=== PATIENT | male | born 1945 | race Caucasian/White ===

== ENCOUNTER 2019-08-12 19:40 | Emergency (ER) | payer OTHER ==
[~2019-08-12] VITALS: Ht 170.2 cm; Wt 77.1 kg
[~2019-08-12 19:40] MED LIST: DEC150 PO; FLO4 PO; LAC PO; LANTUS SOLOS100 U/M1 SC; LIPI20 PO; LIPITOR80 MG PO; LISINOPRIL1 PO1 PO; LISINOPRIL10 MG PO; METFORMIN HCL500 MG; METFORMIN850 M1 PO; METOPROLOL TART25 M1; NAMENDA10 M2 PO; PROAIR HFA0.09 MG/A1; QVAR0.08 MG/Ac IH; SOD1 PO; TEGRETOL200 MG PO; ZESTRIL20 MG PO
[2019-08-12 20:51] LABS: BASOPHIL % 0.3 % (0-2); PLATELET COUNT 353 x10^3mcL (130-400); RED CELL DISTRIBUTION WIDTH 13.6 % (11.5-14.5)
[2019-08-12 21:05] LABS: CALCIUM 9.3 mg/dL (8.5-10.1); CARBON DIOXIDE 31.3 mmol/L (21-32); CHLORIDE SERUM 94 mmol/L (98-107); CREATININE SERUM 1.4 mg/dL (0.7-1.3); GLUCOSE SERUM 114 mg/dL (74-106); POTASSIUM SERUM 5.1 mmol/L (3.5-5.1); SODIUM SERUM 133 mmol/L (136-145)
[2019-08-12 21:09] LABS: ALKALINE PHOSPHATASE 74 U/L (46-116); ALT/SGPT 18 U/L (16-63); AST/SGOT 21 U/L (15-37); BILIRUBIN TOTAL 0.34 mg/dL (0.20-1.00); LIPASE 272 IU/L (73-393); TOTAL PROTEIN, SERUM 7.9 g/dL (6.4-8.2)
[2019-08-13 03:04] VITALS: BP 142/69
== END 2019-08-13 03:04 | disposition home or self-care (01) ==
LOC: ED 19:40
DX: R10.816 Epigastric abdominal tenderness (principal); I10 Essential (primary) hypertension; E11.9 Type 2 diabetes mellitus without complications; E78.00 Pure hypercholesterolemia, unspecified
CPT/HCPCS: 36415; J7030; Q9966

== ENCOUNTER 2019-11-05 19:35 | Observation (INO) | payer OTHER ==
[~2019-11-05] VITALS: Ht 162.6 cm; Wt 77.1 kg
[~2019-11-05 19:35] MED LIST changes: +METFORMIN HCL500 M4 PO; -METFORMIN HCL500 MG
[2019-11-05 20:09] VITALS: Ht 162.6 cm; Wt 77.1 kg
--- NOTE | 2019-11-05 20:21 | NUR ---
PT PRESENTS TO ED WITH C/O R RIB PAIN S/P FALL IN THE SHOWER. PT REPORTS THAT HE WAS FEELING DIZZY AND NAUSEOUS IN THE SHOWER AND THEN HE FELL DOWN AND HIT HIS RIBS ON THE SIDE OF THE TUB. PT STATES THAT HE IS UNSURE IF HE LOST CONCIOUSNESS BUT THINKS HE MIGHT HAVE. PT DENIES PAIN IN HEAD OR CHEST, PT DENIES NAUSEA AT THIS TIME. PT NOTED WITH SHALLOW RESPIRATIONS DUE TO PAIN BUT PT O2 SAT 98% ON RA. PT IS AOX4, NO ACUTE DISTRESS NOTED. PT PLACED ON FULL CM.
--- NOTE | 2019-11-05 20:30 | NUR ---
PT OFF FLOOR FOR XRAY
[2019-11-05 20:50] LABS: BASOPHIL % 0.4 % (0-2); PLATELET COUNT 300 x10^3mcL (130-400); RED CELL DISTRIBUTION WIDTH 13.6 % (11.5-14.5)
[2019-11-05 21:05] LABS: ALBUMIN 3.6 g/dL (3.4-5.0); ALKALINE PHOSPHATASE 87 U/L (46-116); ALT/SGPT 48 U/L (16-63); AST/SGOT 47 U/L (15-37); BILIRUBIN TOTAL 0.54 mg/dL (0.20-1.00); CALCIUM 8.7 mg/dL (8.5-10.1); CARBON DIOXIDE 29.5 mmol/L (21-32); CHLORIDE SERUM 86 mmol/L (98-107); CREATININE SERUM 1.1 mg/dL (0.7-1.3); GLUCOSE SERUM 164 mg/dL (74-106); TOTAL PROTEIN, SERUM 7.3 g/dL (6.4-8.2)
[2019-11-05 21:07] LABS: SODIUM SERUM 124 mmol/L (136-145)
--- NOTE | 2019-11-05 22:10 | NUR ---
ULTRASOUND IN PROGRESS AT BEDSIDE.
--- NOTE | 2019-11-05 22:40 | NUR ---
PT REPORT CALLED TO BECKY STEVENS TO ASSUME PT CARE.
--- NOTE | 2019-11-05 22:50 | NUR ---
PT TRANSFERRED TO 242B BY [facility] BY DANIAL MAIER AND ROSANNA RN. PT ON FULL CM FOR TRANSPORT. PT IS AOX4, RESP EVEN AND UNLABORED, NO ACUTE DISTRESS NOTED. PT AMBULATED FROM [facility] TO BED WITHOUT INCIDENT. PT ACCEPTED BY BECKY STEVENS TO ASSUME PT CARE.
--- NOTE | 2019-11-06 00:30 | NUR ---
RECEIVED FOROM ER DEPT VIA [facility] WITH THE CHEIF COMPLAINTS OF SEVERE RIGHT RIB PAIN S/P FALL AT HOME. PT ALERT AND ORIENTED BUT APPARENTLY DROWSY AT THIS TIME. WAS GIVEN MORPHINE IV AT ER. PLACED COMGORTABLY IN BED. VITAL SIGNS TAKEN AND RECORDED. PATIENT C/O RIGHT RIB PAIN AT THIS TIME 06/01, NOROC 1TAB GIVEN PRN MEDICATION. STARTED ON IVF VIA PERIPHERAL LINE AT 50ML/HR. AL DUE MEDICATIONS GIVEN ORDERED. PLACED CALL LIGHT WITHIN REACH, INSTRUCTED TO CALL FOR ANY ASSISTANCE NEEDED AND VERBALIZED UNDERSTANDING.
[2019-11-06 01:50] VITALS: BP 156/65
--- NOTE | 2019-11-06 03:27 | NUR ---
ABLE TO SLEEP AT LONG INTERVALS. NO S/S OF APIN/DISCOMFORT. NO ADVERSE REACTION FRO ATB THERAPY.
[2019-11-06 05:50] VITALS: BP 129/55
--- NOTE | 2019-11-06 05:51 | NUR ---
CONTINUES ON IVF NS AT 50ML/HR VIA PERIPHERAL LINE AT [facility] TOLERATING WELL. DENIES ANY PAIN/DISCOMFORT AT THIS TIME.
[2019-11-06 06:38] LABS: BASOPHIL % 0.4 % (0-2); PLATELET COUNT 283 x10^3mcL (130-400); RED CELL DISTRIBUTION WIDTH 13.8 % (11.5-14.5)
[2019-11-06 07:08] LABS: ALKALINE PHOSPHATASE 68 U/L (46-116); ALT/SGPT 45 U/L (16-63); AST/SGOT 38 U/L (15-37); BILIRUBIN TOTAL 0.5 mg/dL (0.20-1.00); CALCIUM 8.2 mg/dL (8.5-10.1); CARBON DIOXIDE 28.7 mmol/L (21-32); CHLORIDE SERUM 92 mmol/L (98-107); CREATININE SERUM 0.9 mg/dL (0.7-1.3); GLUCOSE SERUM 103 mg/dL (74-106); POTASSIUM SERUM 4.3 mmol/L (3.5-5.1); SODIUM SERUM 127 mmol/L (136-145); TOTAL PROTEIN, SERUM 6.2 g/dL (6.4-8.2)
--- NOTE | 2019-11-06 07:30 | NUR ---
RECEIVED PATIENT IN BED, APPEARS TO BE SLEEPING. AROUSED EASILY TO NAME. ALERT AND ORIENTED ABLE TO VERBALIZE NEEDS WELL. IVF INFUSING WELL TO LEFT A/C. TELE 9 NSR. PER PATIENT HIS RT SIDE RIB AREA PAIN IN MINIMAL AND TOLERABLE AT THIS TIME. AMBULATES WITH SLOW STEADY GAIT, INSTRUCTED TO CALL FOR ASSIST HE IS S/P FALL AT HOME. VOIDING WELL, USING URINAL. NO ACUTE DISTRESS NOTED.
[2019-11-06 08:53] VITALS: BP 132/55
[2019-11-06 12:00] VITALS: BP 124/53
[2019-11-06 13:28] LABS: CALCIUM 8.7 mg/dL (8.5-10.1); CARBON DIOXIDE 28.7 mmol/L (21-32); CHLORIDE SERUM 93 mmol/L (98-107); CREATININE SERUM 0.9 mg/dL (0.7-1.3); GLUCOSE SERUM 127 mg/dL (74-106); POTASSIUM SERUM 4.5 mmol/L (3.5-5.1); SODIUM SERUM 127 mmol/L (136-145)
--- NOTE | 2019-11-06 14:33 | NUR ---
PATIENT'S PLAN OF CARE WAS DISCUSSED AND REVIEWED WITH INVESTMENT DIRECTOR:JESSIE RICKETTS. I HAVE REVIEWED THE DATA COLLECTION BY INVESTMENT DIRECTOR (NAME):JESSIE RICKETTS. ENTERED ON (DATE/TIME):11/06/2019. I CONCUR WITH THE DATA AND ANY EXCEPTIONS OR COMMENTS ARE LISTED BELOW:
--- NOTE | 2019-11-06 14:54 | NUR ---
PHYSICAL THERAPY DAILY NOTES CO-SIGN All documentation done by the [employer]er for 11/06/19 has been reviewed. I agree with the documentation. Reviewed/Co-Signed by: Reny Escalante PT Documentation Done by:ELISA QUAN SPT
[2019-11-06 16:12] VITALS: BP 144/63
--- NOTE | 2019-11-06 16:31 | NUR ---
PATIENT WAS OOB AND AMBULATED WITH PHYSICAL THERAPY. TOLERATED WELL. STEADY GAIT WAS OBSERVED. IVF INFUSING WELL, IV SITE PATENT. DENIES ANY PAIN OR DISCOMFORT. SPOUSE WAS INTO VISIT. NO CHANGE IN CONDITION NOTED.
--- NOTE | 2019-11-06 17:51 | NUR ---
PATIENT IS SITTING UP IN BED EATING DINNER TRAY. FAMILY MEMBERS AT BEDSIDE. NO CHANGE IN CONDITION NOTED. NO C/O PAIN OR DISCOMFORT AT THIS TIME.
--- NOTE | 2019-11-06 19:25 | NUR ---
CARE ASSUMED FROM OUTGOING [employer] PLANT SUPERINTENDENT. PT RESTING COMFORTABLY IN BED. NO ACUTE DISTRESS NOTED. EVEN AND UNLABORED RESPIRATIONS ON RA. ON TELE# 9 READING SR 84. IV PATENT AND INTACT RUNNING FLUIDS PER EMAR. NO C/O PAIN AT THIS TIME, NO BRUISING NOTED TO RIGHT RIB AREA. BED IN LOWEST POSITION. SIDE RAILS UPX2. CALL LIGHT WITHIN REACH. WILL CONTINUE TO MONITOR.
[2019-11-06 19:55] VITALS: BP 135/57
--- NOTE | 2019-11-07 00:24 | NUR ---
PT RESTING COMFORTABLY IN BED WITH EYES CLOSED. NO ACUTE DISTRESS NOTED. EVEN AND UNLABORED RESPIRATIONS ON RA. ON TELE# 9 READING SR 73. IV PATENT AND INTACT RUNNING FLUIDS PER EMAR. BED IN LOWEST POSITION. SIDE RAILS UPX2. CALL LIGHT WITHIN REACH. WILL CONTINUE TO MONITOR.
[2019-11-07 04:51] VITALS: BP 149/62
--- NOTE | 2019-11-07 06:18 | NUR ---
PT RESTING COMFORTABLY IN INTERVALS THROUGHOUT THE SHIFT. ALL NEEDS TENDED TO AND MET. ALL SCHEDULED MEDICATIONS GIVEN. ON TELE# 9 READING SR 67. IV PATENT AND INTACT RUNNING FLUIDS PER EMAR. NO C/O PAIN AT THIS TIME, C/O PAIN UPON MOVEMENT. BED IN LOWEST POSITION. SIDE RAILS UPX2. CALL LIGHT WITHIN REACH. WILL ENDORSE TO ONCOMING SHIFT.
[2019-11-07 07:02] LABS: ALBUMIN 2.9 g/dL (3.4-5.0); ALKALINE PHOSPHATASE 62 U/L (46-116); ALT/SGPT 39 U/L (16-63); AST/SGOT 28 U/L (15-37); BILIRUBIN TOTAL 0.4 mg/dL (0.20-1.00); CALCIUM 8.2 mg/dL (8.5-10.1); CARBON DIOXIDE 28.8 mmol/L (21-32); CHLORIDE SERUM 97 mmol/L (98-107); CREATININE SERUM 0.8 mg/dL (0.7-1.3); GLUCOSE SERUM 109 mg/dL (74-106); POTASSIUM SERUM 4.5 mmol/L (3.5-5.1); SODIUM SERUM 130 mmol/L (136-145); TOTAL PROTEIN, SERUM 6.2 g/dL (6.4-8.2)
[2019-11-07] MEDS ORDERED: IBU600 M2 PO (07:06)
--- NOTE | 2019-11-07 07:30 | NUR ---
RECEIVED PATIENT IN BED APPEARS TO BE RESTING WELL. AROUSED EASILY TO NAME. DENIES ANY PAIN OR DISCOMFORT AT THIS TIME, PER PATIENT HE ONLY HAS VERY MILD DISCOMFORY RT RIB AREA WHEN HE BENDS TO GET OOB. IVF INFUSING WELL , SITE PATENT. NO RESP DISTRESS NOTED.
[2019-11-07 08:50] VITALS: BP 169/69
[2019-11-07 09:39] VITALS: BP 158/67
--- NOTE | 2019-11-07 10:00 | NUR ---
PATIENT'S PLAN OF CARE WAS DISCUSSED AND REVIEWED WITH PLANT AND EQUIPMENT WORKER:JESSIE RICKETTS. I HAVE REVIEWED THE DATA COLLECTION BY PLANT AND EQUIPMENT WORKER (NAME):JESSIE RICKETTS. ENTERED ON (DATE/TIME):11/07/2019 I CONCUR WITH THE DATA AND ANY EXCEPTIONS OR COMMENTS ARE LISTED BELOW:
[2019-11-07 11:37] VITALS: BP 147/58
[2019-11-07 13:05] VITALS: BP 158/67
[2019-11-07 13:07] VITALS: BP 158/67
--- NOTE | 2019-11-07 13:13 | NUR ---
PATIENT SITTING UP ON THE SIDE OF THE BED EATING LUNCH TRAY. DENIES ANY PAIN OR DISCOMFORT AT THIS TIME. PATIENT TO D/C HOME.
--- NOTE | 2019-11-07 15:23 | NUR ---
PATIENT READY FOR D/C HOME. HL AND TELE DC'D. PRESCRIPTIION AND FOLLOW UP INSTRUCTIONS GIVEN. PERSONAL BELONGINGS LIST SIGNED. CONDITON APPEARS STABLE.
== END 2019-11-07 15:30 | disposition home health service (06) ==
LOC: ED 19:35 → DU 21:47
PROVIDERS: Emergency Medicine; ADMIT Internal Medicine
DX: R55 Syncope and collapse (principal); E87.1 Hypo-osmolality and hyponatremia; I10 Essential (primary) hypertension; E11.9 Type 2 diabetes mellitus without complications; E78.5 Hyperlipidemia, unspecified; F03.90 Unspecified dementia, unspecified severity, without behavioral disturbance, psychotic disturbance, mood disturbance, and anxiety; I65.22 Occlusion and stenosis of left carotid artery
CPT/HCPCS: G0378; J0696; J1644; J2270; J2405; J7030; Q0092